=== PATIENT | female | born 1950 | race Caucasian/White ===

== ENCOUNTER → 2019-10-10 | Outpatient (CLI) | payer MEDICARE, OTHER ==
[~2019-10-10] MED LIST: ASCO500T20 PO; BIOT25006 PO; CALC1CAP21 PO; CLCX100C PO; CLD600T PO; CYAN10007 PO; GLUC-96 PO; LEVO175T3 PO; MULT-974 PO; NEBI5TAB8 PO; OMEG-25 PO
--- NOTE | 2019-10-10 14:10 | Diagnostic Imaging Report ---
INDICATION: Postmenopausal female COMPARISON: None FINDINGS: AP Spine L1-L4: [BMD (g/cm2): 1.441] [T-Score: 2.1] [Z-Score: 2.5] [BMD Previous: na] [BMD % Change: na] LT Hip Neck: [BMD (g/cm2): 0.942] [T-Score: -0.7] [Z-Score: 0.2] LT Hip Total: [BMD (g/cm2):1.017] [T-Score:0.1] [Z-Score: 0.6] [BMD Previous: na] [BMD % Change: na] RT Hip Neck: [BMD (g/cm2):0.933] [T-Score:-0.8] [Z-Score:0.1] RT Hip Total: [BMD (g/cm2):1.008] [T-score:0.0] [Z-Score:0.5] [BMD Previous:na] [BMD % Change:na] *Indicates significant change from prior examination based on 95% confidence level. World Health Organization criteria for BMD interpretation classify patients as Normal (T-score at or above -1.0), Osteopenic (T-score between -1.0 and -2.5) or Osteoporotic (T-score at or below -2.5). LIMITATIONS AND MODIFICATION: Degenerative changes in the lumbar spine may falsely elevate bone density.. FRACTURE RISK (FRAX SCORE): The ten year probability of (%): Major Osteoporotic Fracture: [na] Hip Fracture: [na] IMPRESSION: 1. Normal bone mineral density. 2. Baseline examination. 3. See below National Osteoporosis Foundation guidelines on when to potentially initiate pharmacologic therapy. Based on the National Osteoporosis Foundation Guidelines, pharmacologic treatment should be initiated in any of the following, unless clinical conditions suggest otherwise: * Any patient with prior fragility fracture of the hip or vertebrae. A spine fracture indicates 5X risk for subsequent spine fracture and 2X risk for subsequent hip fracture. * Osteoporosis (T-score <-2.5). * Postmenopausal women and men age 50 and older with low bone mass/osteopenia (T-score between -1.0 and -2.5) by DXA and 10-year major osteoporotic fracture greater than 20% or a 10-year probability of hip fracture greater than 3%. These fracture risks are supplied above in the FRAX score, if applicable. * Clinician judgement and/or patient preferences may indicate treatment for people with 10-year fracture probabilities above or below these levels. Dictated by: Dictated on workstation # [id number]
== END ==
LOC: RAD 08:58
PROVIDERS: ATTEND Nurse Practitioner Family
DX: M81.0 Age-related osteoporosis without current pathological fracture (principal); Z78.0 Asymptomatic menopausal state
CPT/HCPCS: 77080

== ENCOUNTER → 2020-10-16 | Outpatient (CLI) | payer MEDICARE, OTHER ==
[2020-10-16 18:02] LABS: BODY FLUID SOURCE SYNOVIAL
[2020-10-16 18:03] LABS: BODY FLUID APPEARENCE SLT BLDY; BODY FLUID COLOR AMBER; BODY FLUID RBC COUNT 10500 /uL; BODY FLUID WBC TOTAL COUNT 775 /uL
[2020-10-16 18:17] LABS: BF OTHER CELLS 0 %; LYMPHOCYTES,BODY FLUID 80 %
== END ==
LOC: LABNPT 14:10
PROVIDERS: ATTEND Nurse Practitioner Family
DX: M25.461 Effusion, right knee (principal); Z96.651 Presence of right artificial knee joint
CPT/HCPCS: 87070; 87075; 87205; 89051; 89060

== ENCOUNTER → 2020-12-02 | Outpatient (CLI) | payer MEDICARE, OTHER ==
[~2020-12-02] MED LIST changes: +CATHETER FLUSH 10 ML SYR IV PRN
--- NOTE | 2020-12-02 16:57 | Diagnostic Imaging Report ---
INDICATION: Right knee pain after arthroplasty. Arthroplasty was performed less than one year ago. COMPARISON: None available. TECHNIQUE: Three-phase scintigraphic imaging of the bilateral knees was performed after the intravenous administration of 27.3 mCi of technetium-99m MDP. FINDINGS: There is no abnormal blood flow activity at either knee. There is asymmetric increased blood pool activity around the right total knee arthroplasty. On delayed-phase imaging, there is periarticular radiotracer activity around the arthroplasty. IMPRESSION: 1. Scintigraphic features indeterminate for possible septic loosening as there is blood pool activity around the right total knee arthroplasty with associated delayed-phase uptake. If not already performed, arthrocentesis is suggested for assessment for infection. Dictated by: Dictated on workstation # [id number]
== END ==
LOC: CARD 12:00
PROVIDERS: ATTEND Orthopaedic Surgery
DX: T84.196D Other mechanical complication of internal fixation device of bone of right lower leg, subsequent encounter (principal); M17.11 Unilateral primary osteoarthritis, right knee; Z96.651 Presence of right artificial knee joint
CPT/HCPCS: 78315; A9503